=== PATIENT | female | born 1950 | race Caucasian/White ===

== ENCOUNTER 2023-06-01 14:29 | Emergency (ER) | payer OTHER, SELFPAY ==
[2023-06-01 14:33] VITALS: BP 174/76
--- NOTE | 2023-06-01 15:46 | ED.GENMED ---
History of Present Illness
General
Chief Complaint: Skin Surface Trauma
Source: patient
Exam Limitations: none
Time Seen by Provider: 06/01/23 15:15
Nursing documentation reviewed up to this point in time: agreed with
Travel History
Have you had any contact with someone who has COVID-19?: No
Do you have any symptoms of coronavirus? Fever > 100 degrees, chills, cough, shortness of breath, sore throat, loss of taste or smell, muscle aches, or headache?: No
History of Present Illness
History of Present Illness:
72-year-old female with past medical history of hypertension hyperlipidemia, A-fib presenting to the emergency department today with concerns of some redness to her great toes bilaterally. She claims that she did break her toes a few weeks ago.
She recently moved to the area and does not have a primary care doctor to follow-up with. Denies systemic symptoms or fevers.
Review of Systems
Review of Systems
Allergies reviewed?: Yes
All Other Systems: ROS reviewed and negative except as documented in HPI and ROS
Phy Exam
Physical Exam
Physical Exam:
GENERAL: Alert , in no apparent distress
EYE: pupils equal and reactive
NECK: Supple, no significant adenopathy.
ENT: o/p clr, mmm.
CARDIAC: Regular rate and rhythm .
LUNGS: Clear breath sounds bilaterally, no acute respiratory distress, no wheezes/rales/rhonchi
ABDOMEN: Soft, without focal tenderness, no r/g, no cvat
NEUROLOGICAL: Alert and oriented, no focal neuro deficits
SKIN: Very slight redness to the left great toe and right great toe. Very minimal tenderness to palpation good cap refill good pulses good range of motion and strength warm and dry, skin intact.
MUSCULOSKELETAL: No edema, well perfused.
PSYCH: Normal and appropriate interaction.
Course
Orders/Labs/Results
Orders:
Orders
06/01/23 15:28
Cephalexin Monohydrate [Keflex] 500 mg PO NOW STA
Vital Signs
Initial and Last Documented VS:
Initial Vital Signs
Temp Pulse Resp BP Pulse Ox
98.5 F 53 16 174/76 98
06/01/23 14:33 06/01/23 14:33 06/01/23 14:33 06/01/23 14:33 06/01/23 14:33
Last Documented Vital Signs
Temp Pulse Resp BP Pulse Ox
98.5 F 53 16 174/76 98
06/01/23 14:33 06/01/23 14:33 06/01/23 14:33 06/01/23 14:33 06/01/23 14:33
MDM/Problems Addressed
MDM/Problems Addressed:
72-year-old female presenting to the emergency department today with concerns of redness and swelling to the left great toe worsening over the past few days. Here there is mild redness mild tenderness systemic symptoms could be consistent with a
very early cellulitis though unclear on exam. Erring on the side of antibiotic concerning the patient is diabetic and has vascular disease at baseline. Was started on Keflex and advised for close outpatient follow-up. Return precautions given.
*Critical Care Note
Total Time (30-74mins, 75-104mins- exclusive of procedures): Not Applicable
ED Attending Note
-
Portions of this chart may have been created with voice recognition software.� Occasional wrong word or��sound alike� substitutions may have occurred due to the inherent limitations of voice recognition software.
Discharge Plan
Departure
Patient Disposition: Home (Routine Discharge)
Date of Disposition: 06/01/23
Time of Disposition: 15:46
Patient with high blood pressure during this ER visit?: No
Condition: Good
Covid-19: Not Applicable
Discharge Problem:
Cellulitis of toe
Instructions: Cellulitis (Skin Infection), Adult ED
Prescriptions:
New
cephalexin 500 mg capsule
500 mg PO QID 7 Days Qty: 28 0RF
Referrals:
NONE,* [Family Provider] -
Eben Acevedo DPM [Active] - Follow up in 5-7 days
Activity Restrictions/Additional Instructions:
You came to the emergency department today with concerns of redness and swelling to your toes. This could be an infection. Please take Keflex 4 times daily for the next 7 days and follow closely with the foot doctor. Return to the emergency
department for any worsening, new or concerning symptoms.
Interventions
Interventions:
*Risk Screen - Suicide Last Done: 06/01/23 14:33
*General Assessment Last Done: 06/01/23 14:33
*Neglect/Abuse Screening Last Done: 06/01/23 14:33
[2023-06-01] MEDS: KEFLEX 500 MG PO (15:52)
== END 2023-06-01 16:00 | disposition home or self-care (01) ==
LOC: EMR 14:29
PROVIDERS: EMERGENCY PHYSICIAN Emergency Medicine
DX: L03.032 Cellulitis of left toe (principal); I10 Essential (primary) hypertension; E78.5 Hyperlipidemia, unspecified; I48.91 Unspecified atrial fibrillation; E11.59 Type 2 diabetes mellitus with other circulatory complications; E78.00 Pure hypercholesterolemia, unspecified; Z90.49 Acquired absence of other specified parts of digestive tract; Z88.0 Allergy status to penicillin
CPT/HCPCS: 99283

== ENCOUNTER 2023-06-05 11:36 | Emergency (ER) | payer OTHER, SELFPAY ==
[2023-06-05 11:39] VITALS: BP 126/89
[2023-06-05 11:42] VITALS: BMI 38.8
--- NOTE | 2023-06-05 12:07 | ED.GENMED ---
History of Present Illness
General
Chief Complaint: Skin Problem
Source: patient
Exam Limitations: none
Time Seen by Provider: 06/05/23 11:42
Nursing documentation reviewed up to this point in time: agreed with
Travel History
Have you had any contact with someone who has COVID-19?: No
Do you have any symptoms of coronavirus? Fever > 100 degrees, chills, cough, shortness of breath, sore throat, loss of taste or smell, muscle aches, or headache?: No
History of Present Illness
History of Present Illness:
Patient is a 72-year-old female presents to the ER for evaluation. Patient noticed her left big toe being mildly red. She reports she recently moved here from [place] she reports 3 weeks ago while in [place] she broke her left toe and her left
second toe but today noticed an area of redness. Patient reports she was recently here for same.
In review of medical records it is documented the patient was seen here June 01. It was documented the patient had very mild redness and mild tenderness possible cellulitis and erring on the side of caution patient was given Keflex. Patient
still has a prescription for Keflex and still taking Keflex. She denies any fevers.
Phy Exam
General Physical Exam
General Presentation: no apparent distress
General age: appears stated age
General Skin: warm and dry
General Habitus: elderly
General Mental: alert
Neurological Exam
Neurological Exam: alert and oriented x3
Musculoskeletal Exam
Musculoskeletal Exam: other (left l/e with strong pulses left great toe with very minimal redness no swelling no superficial or bony tenderness.)
Skin Exam
Skin Exam: normal color and warm/dry
Psychiatric Exam
Psychiatric Exam: normal mood/affect
Course
Vital Signs
Initial and Last Documented VS:
Initial Vital Signs
Temp Pulse Resp BP Pulse Ox
98.6 F 60 16 126/89 97
06/05/23 11:39 06/05/23 11:39 06/05/23 11:39 06/05/23 11:39 06/05/23 11:39
Last Documented Vital Signs
Temp Pulse Resp BP Pulse Ox
98.6 F 60 16 126/89 97
06/05/23 11:39 06/05/23 11:39 06/05/23 11:39 06/05/23 11:39 06/05/23 11:39
MDM/Problems Addressed
Differential Diagnosis Includes:
Not limited to in cellulitis
MDM/Problems Addressed:
Patient is a 72-year-old female who presented to the ER for concern for redness of her left great toe. Patient on exam has very minimal amount of redness she has no bony tenderness no superficial tenderness. She denies any fever she is nontoxic.
I reviewed chart from prior ED visit which was 4 days ago. Patient was given Keflex to err on the side of caution for mild cellulitis. She is nontoxic and looks well nothing further to do. She recently moved to this area does not have a PCP will
give her podiatry to follow-up with.
Patient is requesting antifungal medication, however I did recommend that she follow-up with outpatient podiatry for further treatment.
*Radiology
Radiology exam reviewed: radiology read reviewed
*Pulse Oximetry
Patient hypoxic: no
*Critical Care Note
Total Time (30-74mins, 75-104mins- exclusive of procedures): Not Applicable
ED Attending Note
-
Portions of this chart may have been created with voice recognition software.� Occasional wrong word or��sound alike� substitutions may have occurred due to the inherent limitations of voice recognition software.
Discharge Plan
Departure
Patient Disposition: Home (Routine Discharge)
Date of Disposition: 06/05/23
Time of Disposition: 12:14
Patient with high blood pressure during this ER visit?: Yes
Condition: Fair
Covid-19: Not Applicable
Discharge Problem:
resolving cellulitis
Instructions: Cellulitis (Skin Infection), Adult (DC), BLOOD PRESSURE
Prescriptions:
No Action
cephalexin 500 mg capsule
500 mg PO QID 7 Days Qty: 28 0RF
Referrals:
Jossy Burnett DPM [[employer]] -
Activity Restrictions/Additional Instructions:
Continue your Keflex as previously prescribed . There is only very minimal amount of redness. this looks to be healing. Follow-up with podiatry as discussed in the next several days call Wednesday for an appointment return if any worsening of symptoms
Interventions
Interventions:
*Risk Screen - Suicide Last Done: 06/05/23 11:39
*General Assessment Last Done: 06/05/23 11:39
*Neglect/Abuse Screening Last Done: 06/05/23 11:39
ED-Skin Assessment Last Done: 06/05/23 11:42
[2023-06-05 13:59] VITALS: BP 130/80
== END 2023-06-05 14:02 | disposition home or self-care (01) ==
LOC: EMR 11:36
PROVIDERS: EMERGENCY PHYSICIAN Emergency Medicine
DX: L03.032 Cellulitis of left toe (principal); E78.5 Hyperlipidemia, unspecified; I10 Essential (primary) hypertension; E78.00 Pure hypercholesterolemia, unspecified; Z90.49 Acquired absence of other specified parts of digestive tract; Z88.0 Allergy status to penicillin
CPT/HCPCS: 99283

== ENCOUNTER 2023-07-16 11:12 | Emergency (ER) | payer OTHER, SELFPAY ==
[2023-07-16 11:14] VITALS: BP 188/93
--- NOTE | 2023-07-16 11:55 | ED.GENMED ---
History of Present Illness
General
Chief Complaint: Skin Problem
Source: patient
Exam Limitations: none
Time Seen by Provider: 07/16/23 11:49
Travel History
Have you had any contact with someone who has COVID-19?: No
Do you have any symptoms of coronavirus? Fever > 100 degrees, chills, cough, shortness of breath, sore throat, loss of taste or smell, muscle aches, or headache?: No
History of Present Illness
History of Present Illness:
See MDM
Past History
Past History
ED Past Medical History: Arrthythmia, HTN and Hypercholesterolemia
ED Past Surgical History: Cholecystectomy
Social History
Tobacco: Non-smoker
Alcohol: None
Phy Exam
Physical Exam
Physical Exam:
See MDM
Course
Orders/Labs/Results
Orders:
Orders
07/16/23 11:54
Sulfamethox./Trimethoprim Ds [Bactrim Ds 800 mg/160 mg] 1 tablet PO NOW STA
Foot, Left 3 View [CR Foot - Left Min 3 Views] Urgent
Comment:
Reason For Exam: left 2nd and 3rd toe pain
Vital Signs
Initial and Last Documented VS:
Initial Vital Signs
Temp Pulse Resp BP Pulse Ox
98.3 F 71 18 188/93 96
07/16/23 11:14 07/16/23 11:14 07/16/23 11:14 07/16/23 11:14 07/16/23 11:14
Last Documented Vital Signs
Temp Pulse Resp BP Pulse Ox
98.3 F 71 18 188/93 96
07/16/23 11:14 07/16/23 11:14 07/16/23 11:14 07/16/23 11:14 07/16/23 11:14
MDM/Problems Addressed
Differential Diagnosis Includes:
HPI and MDM Narrative:
73-year-old female presenting with recurrence of redness to her left second and third toe. Patient has been evaluated the past and diagnosed with cellulitis. Patient was prescribed Keflex. Patient patient is concerned because she believes the
cellulitis is coming back.
On exam, there is very minimal erythema to the dorsal aspect of the left second and third toe. Will start Bactrim as patient states she has tolerated this in the past. Given the pain, will obtain x-ray
Physical exam
General: Well appearing and non-toxic
HEENT: protecting airway
Neck: appears supple
CV: No evidence of cyanosis
Resp: No accessory muscle use
Abd: Non-distended
Extremities: Minimal erythema to the dorsal aspect of the left second and third toe. No bony tenderness. Sensation grossly intact. Cap refill less than 2 seconds
Neuro: alert
Psych: Normal affect
Skin: Intact
Problems Addressed including Acute and Chronic Conditions affecting care:
1. Toe cellulitis
Acuity: acute
Prognosis: stable
Details: Will start Bactrim. Given the pain, will obtain x-ray
Updates
X-ray negative for fracture or obvious osteomyelitis
Differential Diagnosis (but not limited to): Cellulitis, fracture
Testing considered: Blood work
Drug therapy (if applicable): OTC meds, please see d/c instruction regarding Rx drugs
Amount and/or Complexity of Data Reviewed
Clinical info obtained from: Patient
External data reviewed: Recently treated with Keflex for the same problem
Labs I independently reviewed (but not limited to): [N/A
Radiology: X-ray independently reviewed: No fracture or osteomyelitis on toe x-ray
Pulse Ox: not hypoxic
EKG independently reviewed: N/A
[employer]: N/A
Critical Care: N/A
Risk of Complication:
Social Determinants of health: Good social support
Discussed with other providers: N/A
Escalation of Care includes Admit/Obs: After being observed in the Emergency Department, pt stable for discharge.
Occasional wrong word or 'sound a like' substitutions may have occurred due to the inherent limitations of voice recognition software. Read the chart carefully and recognize, using context, where substitutions have occurred.
*Critical Care Note
Total Time (30-74mins, 75-104mins- exclusive of procedures): Not Applicable
ED Attending Note
-
Portions of this chart may have been created with voice recognition software.� Occasional wrong word or��sound alike� substitutions may have occurred due to the inherent limitations of voice recognition software.
Discharge Plan
Departure
Patient Disposition: Home (Routine Discharge)
Date of Disposition: 07/16/23
Time of Disposition: 12:58
Patient with high blood pressure during this ER visit?: Yes
Discharge Problem:
Cellulitis of toe of left foot
Instructions: Cellulitis (Skin Infection), Adult (DC), BLOOD PRESSURE
Prescriptions:
New
sulfamethoxazole-trimethoprim [Bactrim DS] 800-160 mg tablet
1 tab PO BID 7 Days Qty: 14 0RF
No Action
cephalexin 500 mg capsule
500 mg PO QID 7 Days Qty: 28 0RF
Referrals:
NONE,* [Family Provider] -
Activity Restrictions/Additional Instructions:
Watch for worsening signs of infection: fever over 100.5', increasing pain, red streaks around wound, swelling, or increasing drainage of pus. If any of these happen, return to ED promptly. Make sure that you take all your antibiotics as directed
and finish your prescription even if you feel better before the bottle is empty
Please return for any worsening symptoms.
You may return at any time if you have further concerns.
Please follow up with your doctor at the first available appointment, preferably this week.
Thank you for choosing [facility].
Interventions
Interventions:
*Risk Screen - Suicide Last Done: 07/16/23 11:16
*General Assessment Last Done: 07/16/23 11:16
*Neglect/Abuse Screening Last Done: 07/16/23 11:16
*ED COVID-19 Vaccine History Last Done: 07/16/23 12:02
ED-Skin Assessment Last Done: 07/16/23 12:04
Discharge Date and Time
Print Language: AMERICAN
[2023-07-16] MEDS: BACTRIM DS 800 MG/160 MG 1 TABLET PO (12:01)
[2023-07-16 13:33] VITALS: BP 167/74
== END 2023-07-16 13:35 | disposition home or self-care (01) ==
LOC: EMR 11:12
PROVIDERS: EMERGENCY PHYSICIAN Student in an Organized Health Care Education/Training Program
DX: L03.032 Cellulitis of left toe (principal); E78.00 Pure hypercholesterolemia, unspecified; I10 Essential (primary) hypertension; I49.9 Cardiac arrhythmia, unspecified; Z90.49 Acquired absence of other specified parts of digestive tract
CPT/HCPCS: 99283; 73630

== ENCOUNTER 2023-07-24 15:44 | Emergency (ER) | payer OTHER, SELFPAY ==
[2023-07-24 15:45] VITALS: BP 168/83
[2023-07-24 16:00] LABS: % Basophils 0.8 % (0-2); % Eosinophils 3.1 % (0-6); % Immature Granulocytes 0.3 % (0-0.5); % Lymphocytes 19.6 % (20.5-51.1); % Monocytes 6.3 % (1.7-9.3); % Neutrophils 69.9 % (42.2-75.2); Absolute Basophils 0.1 10^3/uL (0-0.2); Absolute Eosinophils 0.2 10^3/uL (0-0.7); Absolute Lymphocytes 1.5 10^3/uL (1.2-3.4); Absolute Monocytes 0.5 10^3/uL (0.1-0.6); Absolute Neutrophils 5.2 10^3/uL (1.4-6.5); Hematocrit 38.8 % (37.0-47.0); Hemoglobin 13.2 g/dL (12.0-16.0); Mean Corpuscular Hgb 30.6 pg (27.0-31.0); Nucleated Red Blood Cells % 0 %; Platelet Count 317 10^3/uL (130-400); Red Blood Cell Count 4.31 10^6/uL (4.20-5.40); Red Cell Dist. Width 14.1 % (11.5-14.5); White Blood Cell Count 7.5 10^3/uL (4.8-10.8)
[2023-07-24 16:16] LABS: ALT (SGPT) 15 U/L (0-35); AST (SGOT) 14 U/L (14-36); Alkaline Phosphatase 88 U/L (38-126); Blood Urea Nitrogen 15 mg/dl (7-17); Calcium 9.4 mg/dl (8.4-10.2); Carbon Dioxide 24 mmol/L (22-30); Chloride 109 mmol/L (98-107); Glucose 112 mg/dl (70-99); Potassium 4.4 mmol/L (3.5-5.1); Sodium 137 mmol/L (135-145); Total Bilirubin 0.5 mg/dl (0.2-1.3); Total Protein 6.5 g/dl (6.3-8.2); eGFR > 60.00
--- NOTE | 2023-07-24 17:21 | ED.GENMED ---
History of Present Illness
General
Chief Complaint: Skin Problem
Source: patient
Exam Limitations: none
Time Seen by Provider: 07/24/23 16:26
Nursing documentation reviewed up to this point in time: agreed with
Travel History
Have you had any contact with someone who has COVID-19?: No
Do you have any symptoms of coronavirus? Fever > 100 degrees, chills, cough, shortness of breath, sore throat, loss of taste or smell, muscle aches, or headache?: No
History of Present Illness
History of Present Illness:
73-year-old female presenting to the emergency department today with concerns of a fungal infection to her toenail 6 weeks to her great toe. She mentioned a concern for blood infection to the security assessor at her facility that called 911 and sent
to the ER. Upon arrival here she claims that she never wanted to come to the ER it was misunderstanding she otherwise feels well and wants to follow-up with primary care doctor for toe infection. She does not seek any specific treatment for this
at this time denies any chest pain shortness of breath body aches fevers or additional concerns.
Past History
Past History
ED Past Medical History: Arrthythmia, HTN and Hypercholesterolemia
ED Past Surgical History: Cholecystectomy
Social History
Tobacco: Non-smoker
Alcohol: None
Review of Systems
Review of Systems
Allergies reviewed?: Yes
All Other Systems: ROS reviewed and negative except as documented in HPI and ROS
Phy Exam
Physical Exam
Physical Exam:
GENERAL: Alert , in no apparent distress
EYE: pupils equal and reactive
NECK: Supple, no significant adenopathy.
ENT: o/p clr, mmm.
CARDIAC: Regular rate and rhythm .
LUNGS: Clear breath sounds bilaterally, no acute respiratory distress, no wheezes/rales/rhonchi
ABDOMEN: Soft, without focal tenderness, no r/g, no cvat
NEUROLOGICAL: Alert and oriented, no focal neuro deficits
SKIN: Warm and dry, skin intact.
MUSCULOSKELETAL: No edema, well perfused.
PSYCH: Normal and appropriate interaction.
Course
Orders/Labs/Results
Orders:
Orders
07/24/23 15:52
CMP [Comprehensive Metabolic Panel] Urgent
Complete Blood Count/With Diff Urgent
07/24/23 16:32
Urinalysis Reflex To Culture Urgent
Abnormal Lab Results
07/24/23
15:52
Lymphocytes % 19.6 L %
(20.5-51.1)
Chloride 109 H mmol/L
(98-107)
Glucose 112 H mg/dl
(70-99)
07/24/23 15:52
07/24/23 15:52
Vital Signs
Initial and Last Documented VS:
Initial Vital Signs
Temp Pulse Resp BP Pulse Ox
99.9 F 69 20 168/83 96
07/24/23 15:45 07/24/23 15:45 07/24/23 15:45 07/24/23 15:45 07/24/23 15:45
Last Documented Vital Signs
Temp Pulse Resp BP Pulse Ox
99.9 F 69 20 168/83 96
07/24/23 15:45 07/24/23 15:45 07/24/23 15:45 07/24/23 15:45 07/24/23 15:45
MDM/Problems Addressed
MDM/Problems Addressed:
73-year-old female presenting to the emergency department today with concerns initially that were misunderstood by her facility she mentioned that she read somewhere that you can get a systemic fungal infection but she was not specifically worried
about this but the staff called EMS and brought her to the ER for this. She claims that she has a toenail that seems to be fungally infected but denies any significant additional symptoms. Here temperature is 99.9 there is no additional symptoms
she denies feeling chills body aches or additional concerns. Labs were obtained without acute abnormalities she does not seem to have a syndrome that is consistent with a systemic infection. She denies any additional symptoms or concerns she was
advised to return for any worsening or progressive symptoms. Otherwise stable for discharge.
*Critical Care Note
Total Time (30-74mins, 75-104mins- exclusive of procedures): Not Applicable
ED Attending Note
-
Portions of this chart may have been created with voice recognition software.� Occasional wrong word or��sound alike� substitutions may have occurred due to the inherent limitations of voice recognition software.
Discharge Plan
Departure
Patient Disposition: Home (Routine Discharge)
Date of Disposition: 07/24/23
Time of Disposition: 17:23
Patient with high blood pressure during this ER visit?: No
Condition: Good
Covid-19: Not Applicable
Discharge Problem:
Fungal infection of toenail
Instructions: Fungal nail infections
Prescriptions:
No Action
cephalexin 500 mg capsule
500 mg PO QID 7 Days Qty: 28 0RF
sulfamethoxazole-trimethoprim [Bactrim DS] 800-160 mg tablet
1 tab PO BID 7 Days Qty: 14 0RF
Referrals:
UNKNOWN - PT DOES,NOT KNOW [Family Provider] -
Activity Restrictions/Additional Instructions:
You came to the emergency department today with concerns of onychomycosis. Please follow-up with your primary care doctor for further treatment. Return to the emergency department for any worsening, new or concerning symptoms.
Interventions
Interventions:
*ED COVID-19 Vaccine History Last Done: 07/24/23 15:45
Discharge Date and Time
Print Language: [id number]
== END 2023-07-24 17:45 | disposition home or self-care (01) ==
LOC: EMR 15:44
PROVIDERS: EMERGENCY PHYSICIAN Student in an Organized Health Care Education/Training Program
DX: B35.1 Tinea unguium (principal); I10 Essential (primary) hypertension; E78.00 Pure hypercholesterolemia, unspecified; I48.92 Unspecified atrial flutter; I48.91 Unspecified atrial fibrillation; Z90.49 Acquired absence of other specified parts of digestive tract
CPT/HCPCS: 99283; 80053; 85025

== ENCOUNTER → 2023-10-15 10:56 | Outpatient (REF) | payer OTHER, SELFPAY | LOC: RCS 10:56 | PROVIDERS: ATTENDING PHYSICIAN Internal Medicine Cardiovascular Disease; FAMILY PHYSICIAN Physician Assistant | DX: R00.2 Palpitations (principal) | CPT/HCPCS: 93306 ==

== ENCOUNTER → 2023-10-27 09:56 | Outpatient (REF) | payer OTHER, SELFPAY | LOC: PAVMRI 09:56 | PROVIDERS: ATTENDING PHYSICIAN Student in an Organized Health Care Education/Training Program | DX: G31.84 Mild cognitive impairment of uncertain or unknown etiology (principal) | CPT/HCPCS: 70553; A9575 ==

== ENCOUNTER → 2025-02-28 11:46 | Outpatient (REF) | payer OTHER, SELFPAY ==
[2025-02-28 13:12] LABS: Hematocrit 40.3 % (37.0-47.0); Hemoglobin 13.1 g/dL (12.0-16.0); Mean Corp Hgb Conc. 32.5 g/dL (33.0-37.0); Mean Corpuscular Volume 94.8 fL (81.0-99.0); Nucleated Red Blood Cells % 0 %; Platelet Count 279 10^3/uL (130-400); Red Cell Dist. Width 13.8 % (11.5-14.5)
[2025-02-28 13:38] LABS: ALT (SGPT) 13 U/L (0-35); AST (SGOT) 11 U/L (14-36); Albumin 3.8 g/dl (3.5-5.0); Alkaline Phosphatase 73 U/L (38-126); Blood Urea Nitrogen 14 mg/dl (7-17); Calcium 9.3 mg/dl (8.4-10.2); Carbon Dioxide 29 mmol/L (22-30); Chloride 108 mmol/L (98-107); Glucose 97 mg/dl (70-99); Potassium 4.7 mmol/L (3.5-5.1); Sodium 140 mmol/L (135-145); Total Protein 6.1 g/dl (6.3-8.2); eGFR > 60.00
[2025-02-28 14:07] LABS: TSH 1.39 uIU/ml (0.47-4.68)
== END ==
LOC: OLABWPC 11:46
PROVIDERS: ATTENDING PHYSICIAN Family Medicine
DX: F41.3 Other mixed anxiety disorders (principal); E78.5 Hyperlipidemia, unspecified; I10 Essential (primary) hypertension
CPT/HCPCS: 36415; 80053; 84439; 84443; 85025